=== PATIENT | male | born 1935 | race Caucasian/White ===

== ENCOUNTER 2016-07-12 13:26 | Day surgery (SDC) | payer OTHER, BC ==
[2016-07-10 15:33] VITALS: BMI 27.0
--- NOTE | 2016-07-10 16:19 | PAT Medication Instructions ---
Service Date July 10, 2016. Current Home Medication List Alfuzosin Hcl (Uroxatral), 10 MG PO QAM Aspirin (Aspirin Ec), 81 MG PO QAM Cephalexin Monohydrate (Keflex), 500 MG PO BID Cholecalciferol (Vitamin D3), 1 TAB PO WK Clopidogrel (Plavix), 75 MG PO QAM Divalproex Sodium (Depakote), 1,000 TAB PO HS Dutasteride (Avodart), 0.5 MG PO QAM Ezetimibe (Zetia), 10 MG PO QAM Lisinopril (Zestril), 10 MG PO QAM Metformin Hcl (Glucophage), 1,000 MG PO QAM Nitroglycerin (Nitrostat), 0.4 MG UT PRN Rosuvastatin Calcium (Crestor), 20 MG PO QAM Sertraline (Zoloft), 100 MG PO QAM Sitagliptin Phosphate (Januvia), 100 MG PO QAM Thioridazine Hcl (Mellaril), 20 MG PO HS PRN for PRN Medication Instructions For Your Scheduled Surgery - Per surgeon/prescribing physician: Clopidogrel (Plavix), 75 MG PO QAM Aspirin (Aspirin Ec), 81 MG PO QAM - Hold the following medications 48 hours prior to surgery: Metformin Hcl (Glucophage), 1,000 MG PO QAM - Hold the following medications the morning of surgery: Sitagliptin Phosphate (Januvia), 100 MG PO QAM Lisinopril (Zestril), 10 MG PO QAM Dutasteride (Avodart), 0.5 MG PO QAM Cholecalciferol (Vitamin D3), 1 TAB PO WK Alfuzosin Hcl (Uroxatral), 10 MG PO QAM - Take the following medications the morning of surgery with a sip of water: Sertraline (Zoloft), 100 MG PO QAM Rosuvastatin Calcium (Crestor), 20 MG PO QAM Nitroglycerin (Nitrostat), 0.4 MG UT PRN Ezetimibe (Zetia), 10 MG PO QAM Cephalexin Monohydrate (Keflex), 500 MG PO BID - Take the following medications as scheduled the night before surgery: Divalproex Sodium (Depakote), 1,000 TAB PO HS Cephalexin Monohydrate (Keflex), 500 MG PO BID Thioridazine Hcl (Mellaril), 20 MG PO HS PRN for PRN If you have any questions please call us at [phone] (Lali Hamilton PA-C) or [phone] or [phone]
[2016-07-10 16:35] LABS: BASO % 0.3 %; BASO ABS # 0.02 K/uL (0-0.2); COMPLETE YES; EOS % 3.4 %; HEMATOCRIT 35.9 % (42-52); IG% 0.4 %; LYMPH % 24.4 %; LYMPH ABS # 1.71 K/uL (1.2-3.4); MEAN CORPUSCULAR HEMOGLOBIN 32.6 pg (25-34); MEAN CORPUSCULAR HGB CONC 35.1 g/dl (32-36); MEAN PLATELET VOLUME 10.8 fL (7.4-10.4); MONO % 9.7 %; NEUT % 61.8 %; PLATELET COUNT 150 K/uL (130-400); RED BLOOD COUNT 3.86 M/uL (4.7-6.1); WHITE BLOOD COUNT 7.01 K/uL (4.8-10.8)
[2016-07-10 16:44] LABS: URINE APPEARANCE CLEAR (CLEAR); URINE BILIRUBIN NEG (NEG); URINE COLOR YELLOW; URINE NITRITE NEG (NEG); URINE SPECIFIC GRAVITY 1.014 (1.000-1.030); UROBILINOGEN NEG (NEG)
[2016-07-10 16:48] LABS: MANUAL MICROSCOPIC REQUIRED? NO; REVIEW REQ? NO
[2016-07-10 16:49] LABS: BUN/CREATININE RATIO 15.7 (10-20); CALCIUM 8.9 mg/dl (8.5-10.1); CREATININE 0.94 mg/dl (0.60-1.40); INR 1.1 (0.9-1.1); PARTIAL THROMBOPLASTIN RATIO 0.9; POTASSIUM 5.2 mmol/L (3.5-5.1); PROTHROMBIN TIME (PATIENT) 11.3 SECONDS (9.0-12.0)
--- NOTE | 2016-07-10 16:51 | DIAGNOSTIC IMAGING REPORT ---
TWO VIEW CHEST CLINICAL HISTORY: Preoperative examination. FINDINGS: PA and lateral chest radiographs are obtained. No prior studies are available for comparison at the time of dictation. The patient is status post midline sternotomy. The heart is enlarged and there is atherosclerotic calcification of the thoracic aorta. The pulmonary vasculature is noncongested. Nonspecific interstitial thickening is noted. No airspace consolidation or pleural effusion is seen. There is no pneumothorax. The skeletal structures are osteopenic. Degenerative change is noted in the thoracic spine. IMPRESSION: Cardiac enlargement with no active disease in the chest. Electronically signed by: Uriah Junior M.D. 07/10/2016 4:49 PM Dictated Date/Time: 07/10/2016 4:47 PM
[~2016-07-12] VITALS: Ht 177.8 cm; Wt 87.0 kg
--- NOTE | 2016-07-12 00:26 | HISTORY & PHYSICAL EXAMINATION ---
DATE OF ADMISSION: 07/12/2016 CHIEF COMPLAINT: right finger injury. HISTORY OF PRESENT ILLNESS: This is a patient who sustained a laceration to the dorsal aspect of the right index finger. The patient was seen at the ER and noted to have a laceration that passed through the extensor tendon. The wound was irrigated and the wound edges were closed. The patient is now being set up for surgical exploration and repair of the tendon. PAST MEDICAL HISTORY: Coronary artery disease, hypertension, hyperlipidemia, anxiety and depression, history of bladder cancer, PTSD, history of renal calculi, hypothyroidism, acid reflux, obesity, history of low back pain, type 2 diabetes, BPH. SOCIAL HISTORY: The patient is a previous smoker. He smoked 2 packs per day for 20 years and quit in 1976. Denies alcohol use. PAST SURGICAL HISTORY: Coronary artery bypass, left carotid surgery, bladder surgery, bilateral hernia surgeries and also thyroid surgery. FAMILY HISTORY: Noncontributory. CURRENT MEDICATIONS: Zetia 10 mg one p.o. daily, Januvia 50 mg one p.o. daily, Crestor 20 mg one p.o. daily, lisinopril 10 mg three p.o. daily, Avodart 0.5 mg one p.o. daily, Uroxatral 10 mg one p.o. daily, Plavix 75 mg one p.o. daily, aspirin 81 mg one p.o. daily, vitamin D 50,000 unit one p.o. q. week, metformin 500 mg two tablets p.o. b.i.d., Zoloft 100 mg one p.o. daily, Depakote 125 mg two p.o. b.i.d. ALLERGIES: ATORVASTATIN. OBJECTIVE PHYSICAL EXAMINATION: GENERAL: The patient is alert and oriented x3. He is in no acute distress. He is a well-dressed, well-nourished, 80-year-old male whose affect is appropriate. CARDIOVASCULAR: Heart has a regular rhythm and rate without murmurs. Radial pulses +2/4. Cap refill is less than 2 seconds. LUNGS: Clear to auscultation bilaterally. LYMPHATIC: No evidence of any swollen lymph nodes. MUSCULOSKELETAL: Upon inspection of the patient's right hand, the patient is noted to have a laceration over the dorsal aspect of his second finger. The wound is currently sutured closed. The patient is unable to actively extend the finger at its PIP joint. No strength testing was performed. NEUROLOGIC: Sensation normal intact distally of the right upper extremity, particularly at the distal aspect of the second finger. X-RAY EXAM: Multiple views of the right hand demonstrate normal bony structure of the right second finger. There are no fractures noted. ASSESSMENT AND DIAGNOSES: 1. Right index finger dorsal laceration with extensor tendon laceration. PLAN: Above assessment was discussed with the patient. At this time, it was recommended the patient undergo a right index finger exploration of laceration and extensor tendon repair. All potential risks, benefits, complications, alternatives and rehab have been discussed with the patient. At this time, he wishes to proceed with the surgery as indicated. He will be scheduled for the surgery on 07/12/2016. FREIDA
[~2016-07-12 13:26] MED LIST: ALFU10TA2 PO; ASPI81TA28 PO; CEFAZOLIN 2000 MG/60 ML D5W IV SCH; CEPH500C2 PO; CHOL1TAB63 PO; CLOP1TAB15 PO; CRS/10 PO; DIVA500T59 PO; DUTA0.5C PO; EZET10TA63 PO; LACTATED RINGER'S 1000ML 1,000 ML IV SCH; LISI-461 PO; METF-384 PO; NTRGSL/4 UT; SERT-234 PO; SITA100T3 PO; THIO10TA PO
[2016-07-12 13:42] VITALS: BP 169/83; PULSE 65; TEMP 36.4; O2SAT 99; Ht 177.8 cm; Wt 87.0 kg
--- NOTE | 2016-07-12 13:56 | History & Physical Bridge Note ---
H&P Re-Evaluation Bridge Note: I have examined the patient, reviewed the History & Physical and in the interval since the performance of the History & Physical I have noted the following changes of clinical significance: No changes noted
[2016-07-12 14:30] LABS: CALCIUM 8.9 mg/dl (8.5-10.1); CREATININE 0.99 mg/dl (0.60-1.40); POTASSIUM 4.4 mmol/L (3.5-5.1)
[2016-07-12] MEDS ORDERED: BUPIVACAINE 0.5 % 5 MG/1 ML MPF 30ML VIAL ONE (14:58)
[2016-07-12] MEDS ORDERED: OXYC-57 PO (15:11)
--- NOTE | 2016-07-12 15:12 | Discharge Instructions ---
Discharge Instructions Date of Service Jul 12, 2016. Admission Reason for Admission: Right Index Finger Extensor Tendon Laceration Discharge Discharge Diagnosis / Problem: right index finger extensor tendon laceration Discharge Goals Goal(s): Decrease discomfort, Improve function Activity Recommendations Activity Limitations: per Instructions/Follow-up section . Instructions / Follow-Up Instructions / Follow-Up ACTIVITY RECOMMENDATIONS: * Avoid lifting anything heavier than a medium water glass until your first post operative visit. SPECIAL CARE INSTRUCTIONS: * Your bandage should be left in place until seen back for follow up. * Some drainage onto the dressing may occur. This is normal. * If the bandage feels excessively tight, you may loosen the elastic bandage. Then call the physician's office for further instructions. * If possible, keep your hand elevated above the level of your heart for the first 2 post operative days. You may use a sling if necessary. * You should move your fingers regularly (50-100 motions per hour) unless otherwise instructed. SPECIAL PRECAUTIONS: * If you notice increased drainage, fever over 101 degrees F. or severe, unremitting pain, call your physician/office at . * You may have been prescribed pain medication. If you experience nausea and/or skin rash, discontinue this medication and contact our office for an alternative medication. FOLLOW UP VISIT: If appointment is not already scheduled: Please call [facility] [place] to make a follow-up appointment for 1 week after your surgery at . Current Hospital Diet Patient's current hospital diet: Discharge Diet Recommended Diet: AHA Diet (Heart Healthy) Pending Studies Studies pending at discharge: no Medical Emergencies . Who to Call and When: Medical Emergencies: If at any time you feel your situation is an emergency, please call [phone] immediately. . Non-Emergent Contact Non-Emergency issues call your: Surgeon Call Non-Emergent contact if: temperature is above 101, your pain is not controlled, your pain is worsening, wound has increased drainage, wound has increased redness . "Provider Documentation" section prepared by Sp Maldonado. . VTE Core Measure Inpt VTE Proph given/why not?: Other Anticoagulation
[2016-07-12] MEDS ORDERED: FENTANYL CITRATE INJ 50 MCG/1 ML 2 ML VIAL ONE (15:13)
[2016-07-12] MEDS ORDERED: ONDANSETRON INJ 2 MG/ML 2 ML VIAL ONE ×2 (15:13→16:02)
[2016-07-12] MEDS ORDERED: PROPOFOL IV EMULSION 10 MG/ML 20 ML VIAL IV ONE (15:13)
[2016-07-12] MEDS ORDERED: MIDAZOLAM HCL 1 MG/ML 2ML VIAL ONE (15:13)
[2016-07-12] MEDS ORDERED: OXYCODONE/ACETAMINOPHEN 5-325 TAB PO PRN (16:30)
--- NOTE | 2016-07-12 16:39 | Anesthesiology Progress Note ---
Anesthesia Post Op Note Date & Time Jul 12, 2016 at 16:39 Vital Signs Pain Intensity: 0 Vital Signs Past 12 Hours Date Time Temp Pulse Resp B/P (MAP) Pulse Ox O2 Delivery O2 Flow Rate FiO2 07/12/16 16:28 36.7 55 17 171/76 97 Room Air 07/12/16 16:24 53 12 07/12/16 16:24 53 12 97 07/12/16 16:23 56 16 98 07/12/16 16:23 55 16 07/12/16 16:22 157/80 07/12/16 16:18 55 13 07/12/16 16:18 56 13 100 07/12/16 16:17 176/82 07/12/16 16:13 56 15 07/12/16 16:13 56 15 100 07/12/16 16:12 149/85 07/12/16 16:09 171/79 07/12/16 16:08 58 07/12/16 16:08 36.6 62 17 171/79 (123) 98 Nasal Cannula 2 07/12/16 16:08 58 97 07/12/16 13:42 36.4 65 18 169/83 (111) 99 Room Air Notes Mental Status: alert / awake / arousable, participated in evaluation Pt Amnestic to Procedure: Yes Nausea / Vomiting: adequately controlled Pain: adequately controlled Airway Patency, RR, SpO2: stable & adequate BP & HR: stable & adequate Hydration State: stable & adequate Anesthetic Complications: no major complications apparent
[2016-07-12 16:45] VITALS: BP 154/96; PULSE 57; TEMP 36.7; O2SAT 98
[2016-07-12 17:15] VITALS: BP 154/77; PULSE 57; O2SAT 99
[2016-07-12 17:46] VITALS: BP 160/69; PULSE 58; TEMP 36.4; O2SAT 100
--- NOTE | 2016-07-12 21:00 | OPERATIVE REPORT ---
DATE OF OPERATION: 07/12/2016 PREOPERATIVE DIAGNOSES: 1. Right second finger extensor tendon laceration. 2. Right second finger laceration, dorsum. POSTOPERATIVE DIAGNOSES: Same. PROCEDURES: 1. Right second finger extensor tendon repair. 2. Irrigation and debridement of right second finger dorsal laceration. SURGEON: Dr. Song. CONSTRUCTION PROJECT MANAGER: None. ANESTHESIA: Local MAC with digital block, right second digit. SPECIMEN: None. DRAINS: None. COMPLICATIONS: None. BLOOD LOSS: 1 mL. PERTINENT HISTORY: This is a 80-year-old gentleman who had been using a kitchen knife to cut a piece of plastic. The knife was drawn toward him, hit the plastic and then went through his second digit of his right finger. He was seen in the Emergency Department where it was irrigated and loosely closed by the physician's blood bank assistant and then referred to my clinic for definitive care and management. All potential risks, benefits, complications, alternatives, rehab, potential for incomplete relief of symptoms, need for further surgery, DVT, PE, , persistent pain, swelling, scarring, weakness, neurovascular injury, wound complications were discussed with the patient. The patient decided to proceed with the procedure as indicated. DESCRIPTION OF PROCEDURE: The patient was taken to operative suite, placed supine on the operating room table. After reviewing consent and identification of operative site, the patient was sedated and a tourniquet was placed high on the right upper extremity over cast padding. Right upper extremity was then sterilely prepped and draped in usual fashion and then a digital block was performed with 0.5% Marcaine plain, approximately 12 mL in the base of the right second digit. Next, the Esmarch bandage was then used to exsanguinate the right upper extremity and the tourniquet was inflated to 250 mmHg. Next, the previously placed sutures were then removed using suture scissors and a hemostat and then the flap laceration was then opened with tenotomy scissors and a forceps. There was noted to be old coagulated blood adjacent to the laceration. This was irrigated and debrided with a small forceps and tenotomy scissors. Copious amounts of sterile normal saline was used to irrigate it until clear. The ends of the extensor tendon were then identified and noted to be approximately 90% transected and this time the edges were then easily approximated using a forceps and hemostat. The extensor tendon was then reapproximated using a modified Castro suture with a 4-0 FiberWire. This was then oversewn with 2 simple sutures, buried interrupted 4-0 FiberWire and then the skin flap was then carefully debrided with tenotomy scissors and then closed with 4-0 nylon sutures using interrupted and horizontal mattress sutures. Next, a range of motion check noted no tethering of the extensor tendon with smooth range of motion passively. Next, a sterile compressive dressing and a volar Alumafoam splint was applied with the finger in extension and overwrapped with 2 inch Coban. The tourniquet was released. The patient was awakened and taken to recovery in stable condition. I attest to the content of the Intraoperative Record and any orders documented therein. Any exception s are noted below.
== END 2016-07-12 17:52 | disposition home or self-care (01) ==
LOC: C.ACU 13:26
PROVIDERS: ATTEND Orthopaedic Surgery Sports Medicine
DX: S61.210A Laceration without foreign body of right index finger without damage to nail, initial encounter (principal); X58.XXXA Exposure to other specified factors, initial encounter; I25.10 Atherosclerotic heart disease of native coronary artery without angina pectoris; I10 Essential (primary) hypertension; E03.9 Hypothyroidism, unspecified; E78.5 Hyperlipidemia, unspecified; F32.9 Major depressive disorder, single episode, unspecified; F43.10 Post-traumatic stress disorder, unspecified; E11.9 Type 2 diabetes mellitus without complications; K21.9 Gastro-esophageal reflux disease without esophagitis; E66.9 Obesity, unspecified; N40.0 Benign prostatic hyperplasia without lower urinary tract symptoms; Z87.891 Personal history of nicotine dependence; Z87.442 Personal history of urinary calculi; Z85.51 Personal history of malignant neoplasm of bladder; Z95.1 Presence of aortocoronary bypass graft; Z79.02 Long term (current) use of antithrombotics/antiplatelets; Z79.84 Long term (current) use of oral hypoglycemic drugs; Z79.899 Other long term (current) drug therapy